=== PATIENT | female | born 1980 | race Caucasian/White ===

== ENCOUNTER 2023-12-15 04:30 | Day surgery (SDC) | payer OTHER ==
[2023-12-08 13:37] VITALS: BMI 32.1
[2023-12-15 09:15] VITALS: PULSE 91
[2023-12-15 11:49] VITALS: BP 149/88; RESP 16; TEMP 97.8
== END 2023-12-15 11:00 | disposition home or self-care (01) ==
LOC: JASU-ENDO 04:30
PROVIDERS: ATTEND Internal Medicine Gastroenterology
PROC: 0DB78ZX Excision of Stomach, Pylorus, Via Natural or Artificial Opening Endoscopic, Diagnostic (ICD-10-PCS; 2023-12-15)
PROC: 0DB68ZX Excision of Stomach, Via Natural or Artificial Opening Endoscopic, Diagnostic (ICD-10-PCS; 2023-12-15)
PROC: 0DB48ZX Excision of Esophagogastric Junction, Via Natural or Artificial Opening Endoscopic, Diagnostic (ICD-10-PCS; 2023-12-15)
PROC: 0DB98ZX Excision of Duodenum, Via Natural or Artificial Opening Endoscopic, Diagnostic (ICD-10-PCS; principal; 2023-12-15 09:30)
DX: K29.50 Unspecified chronic gastritis without bleeding (principal); K21.00 Gastro-esophageal reflux disease with esophagitis, without bleeding; K31.7 Polyp of stomach and duodenum; Z87.19 Personal history of other diseases of the digestive system
CPT/HCPCS: 81025; 82962; 88305-TC; 88342-TC

== ENCOUNTER 2023-12-31 04:53 | Day surgery (SDC) | payer OTHER ==
[2023-12-25 16:16] VITALS: BMI 32.1
[2023-12-31 09:38] VITALS: TEMP 98.2
[2023-12-31 12:14] VITALS: BP 122/74; PULSE 81; RESP 18
== END 2023-12-31 11:50 | disposition home or self-care (01) ==
LOC: JASU-ENDO 04:53
PROVIDERS: ATTEND Internal Medicine Gastroenterology
PROC: 0DJD8ZZ Inspection of Lower Intestinal Tract, Via Natural or Artificial Opening Endoscopic (ICD-10-PCS; principal; 2023-12-31 10:15)
DX: K64.8 Other hemorrhoids (principal); K62.89 Other specified diseases of anus and rectum
CPT/HCPCS: 81025; 82962